=== PATIENT | male | born 1990 | race Caucasian/White ===

== ENCOUNTER 2021-06-21 13:19 | Emergency (ER) | payer MEDICAID ==
[~2021-06-21] VITALS: Ht 188 cm; Wt 96.6 kg
[2021-06-21 13:28] VITALS: BP 151/80
--- NOTE | 2021-06-21 13:33 | NUR ---
pt ambulated to bed 05
--- NOTE | 2021-06-21 13:45 | NUR ---
30 y/o male bib friend from home, c/o nausea, right sided upper abd pain radiates to back that started yesterday and worsened this morning. denies vomiting, diarrhea, sob, dysuria, cough, cp or sore throat.
[2021-06-21 13:48] VITALS: BP 151/80
--- NOTE | 2021-06-21 13:57 | NUR ---
LAB AT BEDSIDE
[2021-06-21 14:06] LABS: BASOPHILS % (AUTO) 0.6 % (0.0-2.0); EOSINOPHILS # (AUTO) 0.1 K/uL (0-0.4); EOSINOPHILS % (AUTO) 3.2 % (0.0-4.0); HEMATOCRIT 41.1 % (36-52); HEMOGLOBIN 14.5 g/dL (12.0-18.0); LYMPHOCYTES # (AUTO) 1.6 K/uL (2.0-11.5); LYMPHOCYTES % (AUTO) 34.4 % (20.5-51.1); MEAN CORPUSCULAR HEMOGLOBIN 31 pg (27-31); MEAN CORPUSCULAR HGB CONC 35 g/dL (33-37); MEAN CORPUSCULAR VOLUME 88.1 fL (80-94); MONOCYTES # (AUTO) 0.8 K/uL (0.8-1.0); NEUTROPHILS # (AUTO) 2.1 K/uL (1.8-7.7); NEUTROPHILS % (AUTO) 44.8 % (42.2-75.2); PLATELET COUNT (AUTO) 256 K/uL (140-450); RED BLOOD CELL COUNT(AUTO) 4.66 MIL/uL (4.20-6.10); RED CELL DISTRIBUTION WIDTH 12.7 % (11.6-13.7); WHITE BLOOD COUNT (AUTO) 4.6 K/uL (4.8-10.8)
--- NOTE | 2021-06-21 14:25 | NUR ---
30 Y/O M C/O NAUSEA ,CHILLS, RL ABD PAIN 7/10 FOR 2 DAYS. THE PAIN WAS WORSE THIS MORNIG. DENIES V/D. NKA OR PMH.
--- NOTE | 2021-06-21 14:37 | NUR ---
PT TO CT SCAN VIA WHEELCHAIR.
[2021-06-21 14:43] LABS: ALBUMIN 3.7 g/dL (3.4-5.0); APPEARANCE,URINE CLEAR (CLEAR); BILIRUBIN,URINE NEGATIVE (NEGATIVE); BLOOD, URINE NEGATIVE (NEGATIVE); CARBON DIOXIDE 28.7 mmol/L (21-32); CREATININE 1.1 mg/dL (0.6-1.3); LEUKOCYTE ESTERASE ,URINE NEGATIVE (NEGATIVE); NITRITE, URINE NEGATIVE (NEGATIVE); POTASSIUM 3.7 mmol/L (3.5-5.1); TOTAL BILIRUBIN 0.4 mg/dL (0.0-1.0); UGLUCOSE NEGATIVE (NEGATIVE)
--- NOTE | 2021-06-21 14:45 | NUR ---
PT BACK FROM CT.
[2021-06-21 14:48] LABS: COLOR,URINE STRAW (YELLOW)
--- NOTE | 2021-06-21 15:25 | NUR ---
DR MENDOZA AT BEDSIDE.
--- NOTE | 2021-06-21 15:44 | NUR ---
Patient discharged with v/s stable. Written and verbal after care instructions given and explained. Patient verbalized understanding. Ambulatory with steady gait. All questions addressed prior to discharge. Advised to follow up with PMD.
--- NOTE | 2021-06-21 15:45 | NUR ---
Chart checked and completed. The patient's care was reviewed and supervised by Simran Tom RN.
== END 2021-06-21 15:44 | disposition home or self-care (01) ==
LOC: MED 13:19
DX: S30.1XXA Contusion of abdominal wall, initial encounter (principal); M54.9 Dorsalgia, unspecified; R11.0 Nausea; X58.XXXA Exposure to other specified factors, initial encounter; Y93.89 Activity, other specified; Y92.89 Other specified places as the place of occurrence of the external cause; Y99.8 Other external cause status
CPT/HCPCS: 36415; 74177; 80053; 81003; 85025; 99285; Q9967

== ENCOUNTER 2021-06-23 20:16 | Emergency (ER) | payer MEDICAID ==
[~2021-06-23] VITALS: Ht 188 cm; Wt 96.2 kg
[2021-06-23 20:22] VITALS: BP 131/81
--- NOTE | 2021-06-23 20:22 | NUR ---
TO BED AMBULATORY
--- NOTE | 2021-06-23 20:35 | NUR ---
RECEIVED IN BED 6 WITH C/O PERSISTANT RLQ PAIN. WAS SEEN HERE 2 DAYS AGO FOR SAME COMPLAINT. STATES HAS ADDITIONAL PAIN TODAY IN MID LOWER ABDOMEN. DENIES TRAUMS. SMALL SLIGHTLY ECHYMOTIC AREA NOTED RLQ. IS AWAKE AND ALERT, SKIN WARM AND DRY.
--- NOTE | 2021-06-23 20:48 | NUR ---
DR. CHRISTIANSON AT BEDSIDE FOR EXAM
[2021-06-23] MEDS ORDERED: KETOROLAC 30 MG/ML VIAL IM ONE (21:00)
[2021-06-23] MEDS ORDERED: AMOX500C25 PO (21:03)
[2021-06-23 21:06] VITALS: BP 131/81
== END 2021-06-23 22:04 | disposition home or self-care (01) ==
LOC: MED 20:16
DX: J02.9 Acute pharyngitis, unspecified (principal)
CPT/HCPCS: 96372; 99283; J1885

== ENCOUNTER 2021-10-04 12:15 | Emergency (ER) | payer MEDICAID, OTHER ==
[~2021-10-04] VITALS: Ht 188 cm; Wt 96.2 kg
[~2021-10-04 12:15] MED LIST: AMOX500C25 PO
[2021-10-04 12:21] VITALS: BP 149/87
[2021-10-04] MEDS ORDERED: IBUP-2213 PO (14:04)
--- NOTE | 2021-10-04 14:31 | NUR ---
PT UP FOR DISCHARGE BY URIEL HERNANDEZ. NO ANSWER IN LOBBY/OUTSIDE, PT LEFT WITHOUT D/C PAPERWORK
== END 2021-10-04 14:31 | disposition home or self-care (01) ==
LOC: MED 12:15
DX: M54.2 Cervicalgia (principal); R07.0 Pain in throat; Z79.899 Other long term (current) drug therapy
CPT/HCPCS: 70360; 99283

== ENCOUNTER 2023-01-04 14:42 | Emergency (ER) | payer OTHER ==
[~2023-01-04] VITALS: Ht 188 cm; Wt 93.0 kg
[~2023-01-04 14:42] MED LIST changes: +IBUP-2213 PO
[2023-01-04 15:19] VITALS: BP 134/89; PULSE 62; RESP 20; TEMP 98; O2SAT 98
[2023-01-04] MEDS ORDERED: AMOX1TAB8 PO (16:53)
[2023-01-04] MEDS ORDERED: IBUP-2213 PO (16:53)
[2023-01-04 17:16] VITALS: BP 134/89; PULSE 62; RESP 20; TEMP 98; O2SAT 98
--- NOTE | 2023-01-04 17:16 | NUR ---
Patient discharged with v/s stable. Written and verbal after care instructions given and explained. Patient alert, oriented and verbalized understanding of instructions. Ambulatory with steady gait. All questions addressed prior to discharge. ID band removed. Patient advised to follow up with PMD. Rx of AMOXICLAV, IBUPROFEN (SENT) given. Patient educated on indication of medication including possible reaction and side effects. Opportunity to ask questions provided and answered.
== END 2023-01-04 17:16 | disposition home or self-care (01) ==
LOC: MED 14:42
DX: H66.91 Otitis media, unspecified, right ear (principal); Z79.899 Other long term (current) drug therapy
CPT/HCPCS: 99283